=== PATIENT | female | born 1985 | race Caucasian/White ===

== ENCOUNTER → 2022-11-04 | Outpatient (CLI) | payer OTHER ==
--- NOTE | 2022-11-04 15:45 | CT ---
EXAMINATION TYPE: CT soft tissue neck w con CT DLP: 322.90 mGycm, Automated exposure control for dose reduction was used. DATE OF EXAM: 11/04/2022 3:25 PM COMPARISON: None. CLINICAL INDICATION:Female, 37 years old with history of R22.1 LOCALIZED SWELLING, MASS AND LUMP, NEC K; , LUMPS ON BOTH SIDES OF NECK, MARKED WITH BB. WHITE SPOT UNDER TONGUE TECHNIQUE: Standard enhanced CT of the neck. Axial sections with coronal and sagittal reformats were obtained. Contrast used:100 mL of Isovue 300 with IV Contrast, Oral contrast used: none. FINDINGS: Brain: Visualized portions are grossly unremarkable. Orbits: Unremarkable Sinuses: Grossly unremarkable. Spaces of the neck: . Palpable abnormality markers correlate with the submandibular glands bilaterall y. Streak artifact limits evaluation of [place]'s duct. There is dilation of the duct on the left. Th ere are no stones definitively visualized. No evidence for organizing fluid collection or mass. Musculoskeletal: No acute osseous pathology. Lymph nodes: Multiple nonenlarged lymph nodes are seen along both anterior chains of the neck. Vascular structures: Visualized major arteries are patent without evidence of aneurysm. Thoracic Inlet/airway: Airway is patent. There is an azygous fissure in the right upper lung. Mild pa raseptal emphysema changes. Soft tissues/Thyroid: Thyroid and remainder of the soft tissues are unremarkable. Other: none. IMPRESSION Palpable abnormality markers correlate with the submandibular glands bilaterally. There is dilation o f [place]'s duct on the left which is suboptimally evaluated given dental and streak artifact. Correl ate for Sialolithiasis with possible obstruction secondary to white spot under the tongue likely repr esenting consultation and resulting in sialoadenitis.
== END | disposition home or self-care (01) ==
LOC: RADCTMAIN 14:40
PROVIDERS: ATTEND Family Medicine
DX: R22.1 Localized swelling, mass and lump, neck (principal)
CPT/HCPCS: 70491; Q9967